=== PATIENT | male | born 1940 | race Caucasian/White ===

== ENCOUNTER → 2018-09-12 14:24 | Outpatient (REF) | payer MEDICARE, SELFPAY | LOC: LAB 14:24 | PROVIDERS: Visit Provider Urology | DX: R31.9 Hematuria, unspecified (principal); N39.9 Disorder of urinary system, unspecified | CPT/HCPCS: 87086 ==

== ENCOUNTER 2020-02-16 03:41 | Inpatient (IN) ==
[2020-02-16 03:56] LABS: ABG Base Excess -17.3 mmol/L (-2.4-2.3); ABG HCO3 9.8 mmhg (22.0-26.0); ABG Oxygen Saturation 99 % (90-100); ABG PCO2 22.2 mmhg (35.0-45.0); ABG PH 7.26 mmol/L (7.35-7.45); ABG PO2 245.8 mmhg (80-100); ABG TCO2 10.5 mmhg (23-27); Allen's Test Y; Oxygen 100 %
--- NOTE | 2020-02-16 04:05 | Emergency Department Note ---
ED Disposition Clinical Impression: Septic shock, Hyperkalemia, Dehydration, Rapid atrial fibrillation, Right bundle branch block Acute on chronic renal failure Qualifiers: Acute renal failure type: unspecified Chronic kidney disease stage: unspecified stage Qualified Code(s): N17.9 - Acute kidney failure, unspecified Urinary tract infection Qualifiers: Urinary tract infection type: site unspecified Hematuria presence: with hematuria Qualified Code(s): N39.0 - Urinary tract infection, site not specified Disposition: Admitted As Inpatient Condition on Discharge: Critical - Critical Care Critical Care Time: Yes Attestation: On 02/16/20, the high probability of a clinically significant, sudden or life threatening deterioration of the following system(s) required my full and direct attention, intervention and personal management. The time I documented below is in addition to time spent performing reported procedures but includes the following listed in this critical care notation. Vital system(s) involved:: Circulatory Failure, Metabolic Failure, Renal Failure, Shock (Septic) My critical care processes included: Assessment & monitoring of V/S, Initial and Re-exams, Data Review/Interpretation, Coordinating Care, Medication Orders and management, Documentation Medical Decision Making - Philippe Inquiry Pt receiving controlled substance: No Vital Signs: 02/16/20 03:43 02/16/20 04:01 02/16/20 04:25 Temperature 102.5 F H Temperature Source Rectal Pulse Rate [Left] 70 126 H 129 H Respiratory Rate 24 Blood Pressure [Right Arm] 100/60 L 130/55 L 85/39 L Blood Pressure Mean [Right Arm] 73 80 54 Blood Pressure Source [Right Arm] Manual Cuff/ Auscultation Blood Pressure Position [Right Arm] 02 Sat by Pulse Oximetry 79 L 100 94 L Oxygen Delivery Method Room Air Nasal Cannula Nasal Cannula Oxygen Flow Rate (LPM) 4 4 02/16/20 04:45 02/16/20 05:05 02/16/20 05:23 Temperature 99.5 F Temperature Source Rectal Pulse Rate [Left] 132 H 127 H 123 H Respiratory Rate 18 Blood Pressure [Right Arm] 99/46 L 100/45 L 91/49 L Blood Pressure Mean [Right Arm] 63 63 63 Blood Pressure Source [Right Arm] Blood Pressure Position [Right Arm] 02 Sat by Pulse Oximetry 100 94 L 100 Oxygen Delivery Method Nasal Cannula Nasal Cannula Nasal Cannula Oxygen Flow Rate (LPM) 4 4 4 02/16/20 05:44 Temperature Temperature Source Pulse Rate [Left] 110 H Respiratory Rate Blood Pressure [Right Arm] 91/45 L Blood Pressure Mean [Right Arm] 60 Blood Pressure Source [Right Arm] Automatic Cuff Blood Pressure Position [Right Arm] Supine 02 Sat by Pulse Oximetry 100 Oxygen Delivery Method Nasal Cannula Oxygen Flow Rate (LPM) 4 - Lab Data Lab Results 02/16/20 03:54: Specimen Source R/r, O2 % 100, ABG pH 7.26 L, ABG pCO2 22.2 L, ABG pO2 245.8 H, ABG HCO3 9.8 L, ABG Total CO2 10.5 L, ABG O2 Saturation 99, ABG Base Excess -17.3 L, Harsha Test Y 02/16/20 03:54: WBC 13.1 H, RBC 3.43 L, Hgb 10.5 L, Hct 32.8 L, MCV 95.7 H, MCH 30.4, MCHC 31.8, RDW 15.5, Plt Count 479 H, MPV 8.6, Neut % (Auto) 95.9 H, Lymph % (Auto) 1.5 L, [place] % (Auto) 1.8, Eos % (Auto) 0.5, Baso % (Auto) 0.1, Neut # (Auto) 12.6 H, Lymph # (Auto) 0.2 L, [place] # (Auto) 0.2, Eos # (Auto) 0.1, Baso # (Auto) 0.0, Total Counted 100, Neutrophils % (Manual) 89 H, Band Neutrophils % 8.0, Lymphocytes % (Manual) 3 L, Platelet Estimate Slight increase, RBC Morphology Not Reportable, Hypochromasia 3+, Macrocytosis 1+, Rouleaux 2+ 02/16/20 03:54: Urine Color Yellow, Urine Appearance Turbid, Urine pH 6.0, Ur S pecific [place] 1.020, Urine Protein 2+, Urine Glucose (UA) Negative, Urine Ketones Trace, Urine Blood 3+, Urine Nitrate Negative, Urine Bilirubin Negative, Urine Urobilinogen 0.2, Ur Leukocyte Esterase 3+ A, Urine RBC 20-50, Urine WBC Tntc A 02/16/20 03:54: Sodium 140, Potassium 6.5 H*, Chloride 107, Carbon Dioxide 12 L, Anion Gap 27.5 H, BUN 118 H*, Creatinine 8.50 H, Estimated Creat Clear 6, Estimated GFR 6 L*, Est GFR ( Amer) 7 L*, Glucose 64 L, Calcium 10.2, Total Bilirubin 0.6, AST 22, ALT 12, Alkaline Phosphatase 142 H, Troponin I 0.04 H, Total Protein 9.3 H, Albumin 4.1, Globulin 5.2 H, Albumin/Globulin Ratio 0.8 L 02/16/20 03:54: Lactate 1.9 02/16/20 04:33: POC Glucose 128 H Result diagrams: 02/16/20 03:54 02/16/20 03:54 Orders (Tests/Meds): ED MEDICATIONS Generic Name Dose Route Start Last Admin Trade Name Freq PRN Reason Stop Dose Admin Sodium Chloride 1,000 mls @ 999 mls/hr 02/16/20 04:30 02/16/20 04:00 Sod Chlor 0.9% 1000ml Bag IV 02/16/20 05:30 999 mls/hr .Q1H1M HOMERO Administration Sodium Chloride 1,000 mls @ 999 mls/hr 02/16/20 04:30 02/16/20 04:30 Sod Chlor 0.9% 1000ml Bag IV 02/16/20 05:30 999 mls/hr .Q1H1M HOMEOR Administration Cefepime HCl 2 gm/ Sodium 100 mls @ 100 mls/hr 02/16/20 04:30 02/16/20 04:42 Chloride IV 03/01/20 04:29 100 mls/hr Q12H HOMERO Administration Protocol Sodium Chloride 1,840 mls @ 920 mls/hr 02/16/20 05:21 02/16/20 05:31 Sod Chlor 0.9% 1000ml Bag 30 ml/kg infuse over 2 hr (1840 ml) 02/16/20 07:20 Not Given IV .Q2H ONE Sodium Chloride 1,000 mls @ 200 mls/hr 02/16/20 05:45 02/16/20 05:46 Sod Chlor 0.9% 1000ml Bag IV 03/17/20 05:44 200 mls/hr .Q5H HOMERO Administration Discontinued Medications Generic Name Dose Route Start Last Admin Trade Name Freq PRN Reason Stop Dose Admin Acetaminophen 650 mg 02/16/20 04:28 02/16/20 04:00 Acetaminophen 650mg Suppository RC 02/16/20 04:29 650 mg ONCE ONE Administration Albuterol Sulfate 2.5 mg 02/16/20 04:32 02/16/20 04:39 Albuterol 0.083% 2.5mg/3ml Neb IH 02/16/20 04:33 2.5 mg ONCE ONE Administration Dextrose 50 ml 02/16/20 04:33 02/16/20 04:40 Dextrose 50% 50ml Syringe IVP 02/16/20 04:34 50 ml ONCE ONE Administration Dextrose 50 ml 02/16/20 04:00 02/16/20 04:00 Dextrose 50% 50ml Syringe IVP 02/16/20 04:01 50 ml ONCE ONE Administration Calcium Gluconate 1,000 mg/ 35 mls @ 100 mls/hr 02/16/20 04:35 02/16/20 04:41 Sodium Chloride IV 02/16/20 04:55 100 mls/hr ONCE ONE Administration Insulin Human Regular 10 unit 02/16/20 04:34 02/16/20 04:41 Humulin R Insulin 100 Units/Ml 10ml Vial IVP 02/16/20 04:35 10 unit ONCE ONE Administration Sodium Bicarbonate 50 meq 02/16/20 04:33 02/16/20 04:40 Sodium Bicarbonate 8.4% 50ml Syringe IV 02/16/20 04:34 50 meq ONCE ONE Administration ORDERS Category Date Time Status CT abdomen pelvis wo con Stat Cat Scan 02/16/20 04:45 Taken XR chest portable Stat Exams 02/16/20 04:00 Taken Basic Metabolic Panel Timed Lab 02/16/20 05:47 Received Troponin I Q3H Lab 02/16/20 07:15 Ordered Troponin I Q3H Lab 02/16/20 10:15 Ordered Blood Culture Stat Micro 02/16/20 03:54 Received Urine Culture(cathed specimen) Stat Micro 02/16/20 03:54 Received - Radiology Data #1 Image(s): Chest Image Reviewed: Yes I reviewed the patient's radiology image Left upper lobe opacification, possible collapse - ECG Data Tracing #1 EKG interpreted by Lenin Hernandez MD: Rhythm: Atrial fibrillation with rapid ventricular response Rate: 151 [place]: normal Ectopy: none Conduction: Right bundle branch block ST Segment Changes: none T Wave Changes: none Q Waves: none Significant baseline artifact present Tracing #2 EKG interpreted by Lenin Hernandez MD: Rhythm: Atrial fibrillation with rapid response Rate: 119 [place]: normal Ectopy: none Conduction: Right bundle branch block ST Segment Changes: none T Wave Changes: none Q Waves: none No evidence of acute ischemia or injury - Physician Consults Physician Consulted: Dede Cameron Time: 05:47 Reason -: Admission Comment/Response: Agrees to admit the patient to the hospital. We discussed the patient's clinical information, including history, exam, laboratory and radiology results and ED course. Per hospital procedure, I will write temporary bridge inpatient orders on the patient. Specific orders requested by the admitting physician: Admit to stepdown. Continue antibiotics, IV fluids, oxygen. Dr. Cameron to see this morning and meet with family to further discuss care. As noted, there was supposed to be a meeting today to further discuss CODE STATUS and the patient has opted for comfort measures only. - Tissue Perfus/Sepsis Re-Eval Sepsis Re-Evaluation Performed: Yes Date Performed: 02/16/20 Time Performed: 05:51 Medical Decision Narrative: Urine from Luis catheter initially milky white, it is now milky red. 5:30 AM: [facility] records obtained from [facility] via fax. Discharge summary reviewed. The patient was discovered to have squamous cell lung cancer on his recent admission as well. He had palliative radiation. He was going to be discharged home to home hospice on 01/08/2020, but it was deemed that discharging him to home without 24-hour caregiver was unsafe. He lives alone. After physicians had a long discussion with his niece Monse on 01/20/2020, the patient opted against any aggressive measures and wished to be comfort only. He was then discharged to shelter facility, [facility] [place]. Last documented creatinine at [facility] is 2.66 on 01/28/2020. Unable to reach family while patient is in the emergency department, despite multiple attempts. General Adult HPI - General Chief complaint: Altered Mental Status Stated complaint: AMS Time Seen by Provider: 02/16/20 03:50 Mode of Arrival: EMS Limitations: Altered Mental Status Description of Symptoms (Recalled from ER Triage Doc. by RN): [facility] pt unresponsive at [facility] Pt arrived responsive to pain, non-verbal. Pt unable to follow commands - History of Present Illness HPI narrative: Brought in by ambulance from [facility] for altered mental status. Patient is unable to answer any questions. alf documents indicate he was admitted to their facility on 01/28/2020, after a hospitalization for E. coli sepsis. We contacted the correction and they report that he was admitted to their facility from [facility] in [place]. Review of his records here indicates his last visit to our facility was in the emergency department on 12/16/2019. He had sepsis, septic shock, rapid atrial fibrillation and dehydration. It was noted on that visit that he had just been discharged from [facility] 3 days prior for pneumonia and COPD. The patient has been enrolled in hospice. It appears that some of his medications have been stopped. There reportedly was going to be a discussion today on his resuscitation status, but as of now he is listed as "full code". - Related Data Home Medications Medication Instructions Recorded Confirmed Budesonide/Formoterol Fumarate 2 puffs IH BID 02/16/20 02/16/20 [Symbicort 80-4.5 Mcg Inhaler] Morphine Sulfate [Roxanol 20mg/mL 0.25 ml PO Q8 PRN 02/16/20 02/16/20 1mL oral soln UDC] Nicotine [Nicotine Patch*] 7 mg TD DAILY 02/16/20 02/16/20 Sennosides/Docusate Sodium 2 each PO DAILY 02/16/20 02/16/20 [Sennosides-Docusate Sodium Tab] dilTIAZem HCL [Cardizem 30mg 30 mg PO BID 02/16/20 02/16/20 tab] ondansetron HCL [Zofran 4mg Tab*] 4 mg PO Q4-6H PRN 02/16/20 02/16/20 Allergies Allergy/AdvReac Type Severity Reaction Status Date / Time codeine [CODEINE] Allergy Unknown I-RASH Verified 12/16/19 18:40 [facility] History - Hepatitis A Screen Drug use history?: No High risk sexual behaviors?: No History of sexually transmitted infection?: No Currently employed?: No Childcare worker?: No Do you have indoor plumbing?: Yes Do you have electricity?: Yes Attestation statement:: This patient has been screened for Hepatitis A risk factors. I have reviewed the patient's past medical history: Yes Medical History: Denies:: Diabetes Mellitus Type 1, Diabetes Mellitus Type 2 Other Surgeries: Yes: Cardiac Surgery Comment: Bladder Surgery x5 - Social History Smoking Status: Current every day smoker Tobacco Type: cigarettes # Packs/Day (cigarettes): 1 Alcohol Intake: never Occupational Status: retired ROS Obtained: Yes unobtainable due to mental status Physical Exam - General General appearance: other Comment: Awake with eyes open. Nods his head when I ask him if he can hear me, he does follow some commands, opening his eyes and gripping hand to command. Nonverbal. - Head Head exam: atraumatic, normocephalic - Eye Eye exam: Present: normal appearance, EOMI - ENT ENT exam: Present: mucous membranes dry - Chest Chest inspection: Present: symmetric chest wall rise - Respiratory Respiratory exam: Present: other (Tachypnea) - Cardiovascular Cardiovascular exam: Present: regular rate, normal rhythm, normal heart sounds, other (Pacemaker present) - Abdominal Exam Abdominal exam: Present: tenderness, guarding Comment: Purple ecchymoses across lower abdomen. Generalized abdominal tenderness, moans and guards. - exam: Present: normal inspection - Extremities Exam Extremities exam: Present: normal inspection - Neurological Exam Neurological exam: Present: other (Moves all 4 extremities) - Skin Skin exam: Present: warm, dry
[2020-02-16 04:12] LABS: Basophils % 0.1 % (0.1-2.0); Eosinophils # 0.1 K/mm3 (0.0-0.4); Eosinophils % 0.5 % (0.1-12.0); Hematocrit 32.8 % (42.0-52.0); Hemoglobin 10.5 g/dL (14.1-18.0); Lymphocytes # 0.2 K/mm3 (0.7-4.5); Lymphocytes % 1.5 % (10-50); Mean Corpuscular HGB Conc 31.8 g/dL (31.8-35.4); Mean Corpuscular Volume 95.7 fl (80-94); Mean Platelet Volume 8.6 fl (7.4-10.4); Monocytes # 0.2 K/mm3 (0.1-1.0); Monocytes % 1.8 % (1.7-9.3); Neutrophils # 12.6 K/mm3 (1.8-7.8); Neutrophils % 95.9 % (37.0-80.0); Platelet Count 479 K/mm3 (142-424); Red Blood Count 3.43 M/mm3 (4.60-6.20); Red Cell Distribution Width 15.5 % (11.5-17.5); White Blood Count 13.1 K/mm3 (4.8-10.8)
[2020-02-16 04:23] LABS: Albumin Level 4.1 g/dl (3.5-5.0); Albumin/Globulin Ratio 0.8 (1.1-1.8); Anion Gap 27.5 mEq/L (5-15); Bilirubin,Total 0.6 mg/dl (0.2-1.3); Calcium 10.2 mg/dl (8.4-10.2); Globulin 5.2 g/dL (1.3-3.2); Total Protein,Serum 9.3 g/dl (6.3-8.2)
[2020-02-16 04:33] LABS: Hypochromasia 3+; Lymphocytes % 3 % (10-50); Macrocytosis 1+; Neutrophils % 89 % (42-76); Rouleaux 2+; Total Cells Counted 100
[2020-02-16 06:20] LABS: Anion Gap 16.4 mEq/L (5-15)
[2020-02-16 06:41] LABS: Calcium 7.3 mg/dl (8.4-10.2)
--- NOTE | 2020-02-16 07:26 | Pharmacy Consult Notes ---
[facility] Pharmacy VTE Monitoring - Patient Demographics Admission date: 02/16/20 Report Date: 02/16/20 Time: 07:26 Allergies/Adverse Reactions: Patient Allergies codeine [CODEINE] Allergy (Unknown, Verified 12/16/19 18:40) I-RASH Height: 1.78 m Weight: 57.924 kg Patient Problems: Current Active Problems Dehydration (Acute) Septic shock (Acute) Hyperkalemia (Acute) Acute on chronic renal failure (Acute) Rapid atrial fibrillation (Acute) Right bundle branch block (Acute) Urinary tract infection (Acute) - VTE Risk Labs: VTE Related Lab Results Hgb 10.5 g/dL (14.1-18.0) L 02/16/20 03:54 Hct 32.8 % (42.0-52.0) L 02/16/20 03:54 Plt Count 479 K/mm3 (142-424) H 02/16/20 03:54 BUN 92 mg/dl (9-20) H 02/16/20 05:47 Creatinine 5.60 mg/dl (0.66-1.25) H D 02/16/20 05:47 Estimated Creat Clear 10 mL/min (50-200) 02/16/20 05:47 - Prophylaxis VTE Prophylaxis Ordered?: Yes Types of VTE Prophylaxis: TEDS Knee High Location of Applied Device: Bilateral Lower Extremeties - VTE Diagnosis Confirmed Treatment or plan recommended: Continue Current Treatment
--- NOTE | 2020-02-16 09:30 | H&P/Discharge Summary ---
General - General Admission date:: 02/16/20 Discharge date: 02/16/20 *Admission Date: 02/16/20 *Chief complaint: Respiratory distress and cough *History of present illness: Brought in by ambulance from [facility] for altered mental status. Patient is unable to answer any questions. intermediate documents indicate he was admitted to their facility on 01/28/2020, after a hospitalization for E. coli sepsis. We contacted the senior care and they report that he was admitted to their facility from [facility] in [place]. Review of his records here indicates his last visit to our facility was in the emergency department on 12/16/2019. He had sepsis, septic shock, rapid atrial fibrillation and dehydration. It was noted on that visit that he had just been discharged from [facility] 3 days prior for pneumonia and COPD. The patient has been enrolled in hospice. It appears that some of his medications have been stopped. There reportedly was going to be a discussion today on his resuscitation status, but as of now he is listed as "full code". 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 I met with patient personally when he was alert and oriented to [facility] last week and he wished to be a no CODE STATUS at that point. Somehow this was not communicated to staff or he had a change of heart. Transferred to the hospital. Patient is terminally ill. Acute kidney injury, metastatic lung cancer and is not a candidate for ongoing life support and is a candidate for hospice and palliative care intervention. [facility] History I have reviewed the patient's past medical history: Yes Medical History: Reports:: Arrhythmia, Atrial Fibrillation, Cancer (bladder), Carotid Stenosis, Congestive Heart Failure, Hyperlipidemia, Hypertension, Internal Pacemaker, Myocardial Infarction, Peripheral Vascular Disease Denies:: Diabetes Mellitus Type 1, Diabetes Mellitus Type 2, MRSA *Have you ever received a pneumonia vaccine?: No (unresponsive) *Have you received a flu vaccine this season?: No (unresponsive) Other Medical History: Reports: Anemia Other Surgeries: Yes: CABG, Cardiac Surgery, Coronary Stent (x 3), Pacemaker Amputation: No - *Social History Smoking Status: Unknown if ever smoked Tobacco Type: cigarettes # Packs/Day (cigarettes): 0 Alcohol Intake: never *Occupational Status:: other *Travel in the last 8 weeks: None Family Hx:: Unable to obtain Review of Systems - Review of Systems Review of systems:: unable to obtain Exam Vital signs and Labs for Last 24 Hours: Temp Pulse Resp BP Pulse Ox 98.8 F 125 H 23 138/49 L 100 02/16/20 08:00 02/16/20 09:00 02/16/20 09:00 02/16/20 09:00 02/16/20 09:00 Laboratory Results - last 24 hr 02/16/20 03:54: Specimen Source R/r, O2 % 100, ABG pH 7.26 L, ABG pCO2 22.2 L, ABG pO2 245.8 H, ABG HCO3 9.8 L, ABG Total CO2 10.5 L, ABG O2 Saturation 99, ABG Base Excess -17.3 L, Harsha Test Y 02/16/20 03:54: WBC 13.1 H, RBC 3.43 L, Hgb 10.5 L, Hct 32.8 L, MCV 95.7 H, MCH 30.4, MCHC 31.8, RDW 15.5, Plt Count 479 H, MPV 8.6, Neut % (Auto) 95.9 H, Lymph % (Auto) 1.5 L, [place] % (Auto) 1.8, Eos % (Auto) 0.5, Baso % (Auto) 0.1, Neut # (Auto) 12.6 H, Lymph # (Auto) 0.2 L, [place] # (Auto) 0.2, Eos # (Auto) 0.1, Baso # (Auto) 0.0, Total Counted 100, Neutrophils % (Manual) 89 H, Band Neutrophils % 8.0, Lymphocytes % (Manual) 3 L, Platelet Estimate Slight increase, RBC Morphology Not Reportable, Hypochromasia 3+, Macrocytosis 1+, Rouleaux 2+ 02/16/20 03:54: Urine Color Yellow, Urine Appearance Turbid, Urine pH 6.0, Ur Specific [place] 1.020, Urine Protein 2+, Urine Glucose (UA) Negative, Urine Ketones Trace, Urine Blood 3+, Urine Nitrate Negative, Urine Bilirubin Negative, Urine Urobilinogen 0.2, Ur Leukocyte Esterase 3+ A, Urine RBC 20-50, Urine WBC Tntc A 02/16/20 03:54: Sodium 140, Potassium 6.5 H*, Chloride 107, Carbon Dioxide 12 L, Anion Gap 27.5 H, BUN 118 H*, Creatinine 8.50 H, Estimated Creat Clear 6, Estimated GFR 6 L*, Est GFR ( Amer) 7 L*, Glucose 64 L, Calcium 10.2, Total Bilirubin 0.6, AST 22, ALT 12, Alkaline Phosphatase 142 H, Troponin I 0.04 H, Total Protein 9.3 H, Albumin 4.1, Globulin 5.2 H, Albumin/Globulin Ratio 0.8 L 02/16/20 03:54: Lactate 1.9 02/16/20 04:33: POC Glucose 128 H 02/16/20 05:47: Sodium 140, Potassium 4.4 D, Chloride 116 H, Carbon Dioxide 12 L, Anion Gap 16.4 H, BUN 92 H, Creatinine 5.60 H D, Estimated Creat Clear 10, Estimated GFR 10 L*, Est GFR ( Amer) 12 L* D, Glucose 1033 H* D, Calcium 7.3 L D I & O for Last 24 hours: Intake & Output 02/13/20 02/14/20 02/15/20 02/16/20 11:59 11:59 11:59 11:59 Intake Total 0 / 0 Output Total 750 / 750 Balance -750 / -750 Weight 127 lb 11.2 oz Narrative: Vital signs reviewed. Patient is cachectic, minimally responsive. Oropharynx dry. No JVD. Extremities are mottled and cool. Diminished distal pulses. Lungs have rhonchi and crackles throughout. Extremely poor air entry. Heart rate regular. Abdomen soft. Skin is poorly perfused but has no significant rash. Neurologic exam reveals no focal deficits but he is clearly obtunded. Hospital Course Hospital Course: I discussed case with daughter via phone. I reiterated Mr. Griffin's conversation with me a week and half ago and went over his terminal prognosis. She is in agreement with plan to get hospice involved. We will transition care back to senior care today. We will not continue IV antibiotics or fluids. Palliative medicines per hospice. Patient is DNR status, I affirmed this personally with his daughter and this was witnessed by our second-floor nursing staff. Results Labs on day of discharge: Labs from last 24 hours 02/16/20 02/16/20 02/16/20 05:47 04:33 03:54 WBC RBC Hgb Hct MCV MCH MCHC RDW Plt Count MPV Neut % (Auto) Lymph % (Auto) [place] % (Auto) Eos % (Auto) Baso % (Auto) Neut # (Auto) Lymph # (Auto) [place] # (Auto) Eos # (Auto) Baso # (Auto) Total Counted Neutrophils % (Manual) Band Neutrophils % Lymphocytes % (Manual) Platelet Estimate RBC Morphology Hypochromasia Macrocytosis Rouleaux Specimen Source O2 % ABG pH ABG pCO2 ABG pO2 ABG HCO3 ABG Total CO2 ABG O2 Saturation ABG Base Excess Harsha Test Sodium 140 Potassium 4.4 D Chloride 116 H Carbon Dioxide 12 L Anion Gap 16.4 H BUN 92 H Creatinine 5.60 H D Estimated Creat Clear 10 Estimated GFR 10 L* Est GFR ( Amer) 12 L* D Glucose 1033 H* D POC Glucose 128 H Lactate 1.9 Calcium 7.3 L D Total Bilirubin AST ALT Alkaline Phosphatase Troponin I Total Protein Albumin Globulin Albumin/Globulin Ratio Urine Color Urine Appearance Urine pH Ur Specific [place] Urine Protein Urine Glucose (UA) Urine Ketones Urine Blood Urine Nitrate Urine Bilirubin Urine Urobilinogen Ur Leukocyte Esterase Urine RBC Urine WBC 02/16/20 02/16/20 02/16/20 03:54 03:54 03:54 WBC 13.1 H RBC 3.43 L Hgb 10.5 L Hct 32.8 L MCV 95.7 H MCH 30.4 MCHC 31.8 RDW 15.5 Plt Count 479 H MPV 8.6 Neut % (Auto) 95.9 H Lymph % (Auto) 1.5 L [place] % (Auto) 1.8 Eos % (Auto) 0.5 Baso % (Auto) 0.1 Neut # (Auto) 12.6 H Lymph # (Auto) 0.2 L [place] # (Auto) 0.2 Eos # (Auto) 0.1 Baso # (Auto) 0.0 Total Counted 100 Neutrophils % (Manual) 89 H Band Neutrophils % 8.0 Lymphocytes % (Manual) 3 L Platelet Estimate Slight increase RBC Morphology Not Reportable Hypochromasia 3+ Macrocytosis 1+ Rouleaux 2+ Specimen Source O2 % ABG pH ABG pCO2 ABG pO2 ABG HCO3 ABG Total CO2 ABG O2 Saturation ABG Base Excess Harsha Test Sodium 140 Potassium 6.5 H* Chloride 107 Carbon Dioxide 12 L Anion Gap 27.5 H BUN 118 H* Creatinine 8.50 H Estimated Creat Clear 6 Estimated GFR 6 L* Est GFR ( Amer) 7 L* Glucose 64 L POC Glucose Lactate Calcium 10.2 Total Bilirubin 0.6 AST 22 ALT 12 Alkaline Phosphatase 142 H Troponin I 0.04 H Total Protein 9.3 H Albumin 4.1 Globulin 5.2 H Albumin/Globulin Ratio 0.8 L Urine Color Yellow Urine Appearance Turbid Urine pH 6.0 Ur Specific [place] 1.020 Urine Protein 2+ Urine Glucose (UA) Negative Urine Ketones Trace Urine Blood 3+ Urine Nitrate Negative Urine Bilirubin Negative Urine Urobilinogen 0.2 Ur Leukocyte Esterase 3+ A Urine RBC 20-50 Urine WBC Tntc A 02/16/20 03:54 WBC RBC Hgb Hct MCV MCH MCHC RDW Plt Count MPV Neut % (Auto) Lymph % (Auto) [place] % (Auto) Eos % (Auto) Baso % (Auto) Neut # (Auto) Lymph # (Auto) [place] # (Auto) Eos # (Auto) Baso # (Auto) Total Counted Neutrophils % (Manual) Band Neutrophils % Lymphocytes % (Manual) Platelet Estimate RBC Morphology Hypochromasia Macrocytosis Rouleaux Specimen Source R/r O2 % 100 ABG pH 7.26 L ABG pCO2 22.2 L ABG pO2 245.8 H ABG HCO3 9.8 L ABG Total CO2 10.5 L ABG O2 Saturation 99 ABG Base Excess -17.3 L Harsha Test Y Sodium Potassium Chloride Carbon Dioxide Anion Gap BUN Creatinine Estimated Creat Clear Estimated GFR Est GFR ( Amer) Glucose POC Glucose Lactate Calcium Total Bilirubin AST ALT Alkaline Phosphatase Troponin I Total Protein Albumin Globulin Albumin/Globulin Ratio Urine Color Urine Appearance Urine pH Ur Specific [place] Urine Protein Urine Glucose (UA) Urine Ketones Urine Blood Urine Nitrate Urine Bilirubin Urine Urobilinogen Ur Leukocyte Esterase Urine RBC Urine WBC DS: Diagnosis - Discharge Diagnosis (1) Squamous cell carcinoma of lung, stage IV Status: Acute (2) Acute on chronic renal failure Status: Acute (3) Dehydration Status: Acute (4) Hyperkalemia Status: Acute (5) Pneumonia Status: Acute Discharge Plan - Patient Discharge Instructions ACTIVITY: Continue current activity DIET: continue same diet - Follow up Plan Disposition: Hospice - Medical Facility Home Medications: Home Medications Medication Instructions Recorded Confirmed Type Acetaminophen [Acetaminophen Extra 1,000 mg PO Q6HP PRN 02/16/20 02/16/20 History Strength] Budesonide/Formoterol Fumarate 2 puffs IH BID 02/16/20 02/16/20 History [Symbicort 80-4.5 Mcg Inhaler] Ipratropium/Albuterol Sulfate 3 ml IH Q4HP PRN 02/16/20 02/16/20 History [Duoneb 3mL neb] Lactulose [Lactulose 20gm/30ml 20 gm PO Q4HP PRN 02/16/20 02/16/20 History Oral Soln] Morphine Sulfate [Roxanol 20mg/mL 0.25 ml PO Q8HP PRN 02/16/20 02/16/20 History 1mL oral soln UDC] Nicotine [Nicotine Patch*] 7 mg TD DAILY 02/16/20 02/16/20 History Polyvinyl Alcohol [Artificial 1 drp EYE-RIGHT Q6HP PRN 02/16/20 02/16/20 History Tears Soln 15mL Bottle] Sennosides/Docusate Sodium 2 each PO HS 02/16/20 02/16/20 History [Sennosides-Docusate Sodium Tab] bisacodyL [Dulcolax 10mg Supp] 10 mg RC DAILYP PRN 02/16/20 02/16/20 History dilTIAZem HCL [Cardizem 30mg 30 mg PO BID 02/16/20 02/16/20 History tab] diphenhydrAMINE HCL 25 mg PO Q6HP PRN 02/16/20 02/16/20 History [Diphenhydramine HCl] ondansetron HCL [Zofran 4mg Tab*] 4 mg PO Q4HP PRN 02/16/20 02/16/20 History Prescriptions/Medication Reconciliation: Continued Morphine Sulfate [Roxanol 20mg/mL 1mL oral soln UDC] 0.25 ml PO Q8HP PRN PRN Reason: SHORTNESS OF BREATH/PAIN Sennosides/Docusate Sodium [Sennosides-Docusate Sodium Tab] 2 each PO HS Ipratropium/Albuterol Sulfate [Duoneb 3mL neb] 3 ml IH Q4HP PRN PRN Reason: Shortness Of Breath diphenhydrAMINE HCL [Diphenhydramine HCl] 25 mg PO Q6HP PRN PRN Reason: Itching Polyvinyl Alcohol [Artificial Tears Soln 15mL Bottle] 1 drp EYE-RIGHT Q6HP PRN PRN Reason: DRY EYES Acetaminophen [Acetaminophen Extra Strength] 1,000 mg PO Q6HP PRN PRN Reason: As Needed For Fever Or Pain ondansetron HCL [Zofran 4mg Tab*] 4 mg PO Q4HP PRN PRN Reason: Nausea Discontinued Budesonide/Formoterol Fumarate [Symbicort 80-4.5 Mcg Inhaler] 2 puffs IH BID dilTIAZem HCL [Cardizem 30mg tab] 30 mg PO BID bisacodyL [Dulcolax 10mg Supp] 10 mg RC DAILYP PRN PRN Reason: Constipation Nicotine [Nicotine Patch*] 7 mg TD DAILY Lactulose [Lactulose 20gm/30ml Oral Soln] 20 gm PO Q4HP PRN PRN Reason: Constipation - Problem Reconciliation Problems Reviewed?: Yes
--- NOTE | 2020-02-18 21:41 | Electrocardiograph Report ---
APPROVED REPORT Exam: Resting ECG HR:119 bpm ECG Measurements Heart Rate 119 AXES QRSd 146 QRS 81 QT 382 T54 QTc 537 <Conclusion> Wide QRS rhythm with premature supraventricular complexes Right bundle branch block Abnormal ECG Electronically signed by : Abad Cameron, 02/18/2020 21:40:53
--- NOTE | 2020-02-18 21:41 | Electrocardiograph Report ---
APPROVED REPORT Exam: Resting ECG HR:151 bpm ECG Measurements Heart Rate 151 AXES AR 184 P QRSd 156 QRS 121 QT 292 T76 QTc 462 <Conclusion> Sinus tachycardia with fusion complexes Right bundle branch block Abnormal ECG Electronically signed by : Abad Cameron, 02/18/2020 21:41:03
== END 2020-02-16 11:46 | disposition hospice, inpatient (51) | DRG 194 ==
LOC: ER 03:41 → 2ND 05:54
PROVIDERS: ADMIT Internal Medicine Adolescent Medicine; ATTEND Internal Medicine Adolescent Medicine